=== PATIENT | male | born 1970 | race Caucasian/White ===

== ENCOUNTER 2023-11-10 17:51 | Emergency (ER) | payer OTHER ==
[2023-11-10 17:57] VITALS: BP 153/104; PULSE 99; RESP 18; TEMP 98.5; BMI 34.8
[2023-11-10] MEDS ORDERED: oxyCODONE HCL 5 MG TABLET PO ONE (19:02)
[2023-11-10] MEDS ORDERED: oxyCODONE HCL 5 MG TABLET ONE (19:12)
== END 2023-11-10 19:14 | disposition home or self-care (01) ==
LOC: JER 17:51 → JERFT 17:51
DX: M54.9 Dorsalgia, unspecified (principal); G89.29 Other chronic pain
CPT/HCPCS: 99283-25